=== PATIENT | female | born 1965 ===

== ENCOUNTER 2020-10-30 12:14 | Inpatient (IN) ==
[2020-10-30] MEDS ORDERED: ALBUTEROL 2.5 MG/3 ML NEB RESP TX PRN (14:45)
[2020-10-30] MEDS ORDERED: ONDANSETRON 4 MG/2 ML VIAL IV PRN (14:46)
[2020-10-30] MEDS: FAMOTIDINE 20 MG/2 ML VIAL IV SCH (15:02)
[2020-10-30 15:31] LABS: ABG Base Excess -2.6 MMOL/L (-2.5-2.5); ABG PCO2 29.1 MM HG (35-48); ABG PH 7.454 (7.35-7.45); ABG PO2 56.5 MM HG (80-95); ABG TCO2 20.8 MMOL/L (23-27); Allen Test Positive; Pt O2 Delivery Device Venturi Mask
[2020-10-30 15:32] LABS: Albumin 3.4 G/DL (3.4-5.0); Bilirubin,Total 8.4 MG/DL (0.2-1.0); Calcium 7.9 MG/DL (8.5-10.1); Osmolality,Calculated 290.3 MOS/KG (273-304); Potassium 3.8 MMOL/L (3.5-5.1); Total Protein 7.1 G/DL (6.4-8.2)
[2020-10-30 15:39] LABS: Thyroid Stimulating Hormone 0.745 uIU/ml (0.358-3.74)
[2020-10-30 16:52] LABS: INR 1.1; PT Patient Result 11.9 SECS (10.5-12.0)
[2020-10-30 16:54] LABS: Basophils % 0.3 % (0.0-0.8); Eosinophils % 0.1 % (0.00-10.9); Immature Granulocytes % 4.2 %; Immature Granulocytes Absolute 0.66 #; Lymphocytes # 2.1 10*3/uL (1.4-4.0); Lymphocytes % 13.1 % (21.3-54.2); Mean Corpuscular HGB Conc 34.8 GM/DL (32-36); Mean Corpuscular Volume 109.5 FL (87-102); Mean Platelet Volume 10.6 FL (9.6-12.0); Monocytes % 5.7 % (1.7-12.7); Neutrophils % 76.6 % (38.7-73.9); Platelet Count 128 T/CUMM (130-400); Red Blood Count 1.26 MC/CUMM (3.8-5.5); Red Cell Distribution Width 21.2 % (9.3-17.3); White Blood Count 15.8 T/CUMM (4-12)
[2020-10-30 17:12] LABS: Hematocrit 13.8 VOL% (35.7-47.0); Hemoglobin 4.8 GM/DL (12.0-16.0)
[2020-10-30] MEDS ORDERED: SODIUM CHLORIDE 0.9% 1,000 ML IV PRN ×2 (17:15→18:21)
[2020-10-30 18:02] LABS: Hepatitis B Core IgM Quant 0.05 Index; Hepatitis B Surface Ag Quant < 0.10 Index; Hepatitis B Surface Ag Result Non-Reactive (NonReactive); Hepatitis C Virus Ab Quant 0.07 Index; Hepatitis C Virus Ab Result Non-Reactive (NonReactive)
[2020-10-30 20:17] LABS: Bilirubin,Urine Negative (Negative); Blood, Urine Small mg/dL (Negative); Glucose,Urine (UA) Negative (Negative); Ketones,Urine Negative (Negative); Mucus,Urine Occasional /LPF (Occasional); Nitrite,Urine Negative (Negative); Protein,Urine Negative; RBC,Urine 1 /HPF (0-4); Squamous Epithelial Cell,Urine Occasional /HPF (0-10); Urine Appearance CLEAR (Clear); Urine Color Amber (Yellow)
[2020-10-31 05:05] LABS: Albumin 3.3 G/DL (3.4-5.0); Bilirubin,Total 7.7 MG/DL (0.2-1.0); Osmolality,Calculated 292.3 MOS/KG (273-304); Potassium 3.4 MMOL/L (3.5-5.1)
[2020-10-31 08:11] LABS: Basophils % 0.2 % (0.0-0.8); Eosinophils % 0.1 % (0.00-10.9); Immature Granulocytes % 4.9 %; Immature Granulocytes Absolute 0.79 #; Lymphocytes % 12.4 % (21.3-54.2); Mean Corpuscular Volume 112.2 FL (87-102); Monocytes % 6.9 % (1.7-12.7); NRBC # 2.38 10*3/uL; Neutrophils % 75.5 % (38.7-73.9); Red Blood Count 0.98 MC/CUMM (3.8-5.5); Red Cell Distribution Width 22.6 % (9.3-17.3); White Blood Count 16.2 T/CUMM (4-12)
[2020-10-31] MEDS: methylPREDNISolone SOD SUC 125 MG/2 ML VIAL IV SCH ×3 (08:29→21:26)
[2020-10-31] MEDS: FAMOTIDINE 20 MG/2 ML VIAL IV SCH ×2 (08:30→21:26)
[2020-10-31 08:33] LABS: Albumin 3.3 G/DL (3.4-5.0); Potassium 3.6 MMOL/L (3.5-5.1); Total Protein 6.8 G/DL (6.4-8.2)
[2020-10-31 08:35] LABS: Bilirubin,Total 7.6 MG/DL (0.2-1.0)
[2020-10-31 09:00] LABS: Mean Platelet Volume 10.5 FL (9.6-12.0); Platelet Count 160 T/CUMM (130-400)
[2020-10-31 09:05] LABS: Hemoglobin 4.4 GM/DL (12.0-16.0)
[2020-10-31] MEDS ORDERED: diphenhydrAMINE 50 MG/1 ML VIAL IV ONE (09:30)
[2020-10-31] MEDS ORDERED: ACETAMINOPHEN 325 MG TABLET PO ONE (09:30)
[2020-10-31 09:50] LABS: Lymphocytes 10 % (20-55); Nucleated Red Blood Cells 11 (0-5); Platelet Estimate Adequate; Segmented Neutrophils 82 % (50-85); Total Cells Counted 100
[2020-10-31 09:51] LABS: Hypochromasia 1+; Microcytosis 1+
[2020-10-31] MEDS ORDERED: IMMUNE GLOBULIN 10% 20 GM, IMMUNE GLOBULIN 10% 5 GM in PREMIX 1 EACH IV ONE (10:00)
[2020-10-31] MEDS ORDERED: DEXTROSE 50% 25 GM/50 ML VIAL IV PRN (10:26)
[2020-10-31] MEDS ORDERED: GLUCAGON 1 MG VIAL IM PRN (10:26)
[2020-10-31] MEDS ORDERED: ALPRAZolam 0.5 MG TABLET PO ONE (10:32)
[2020-10-31] MEDS ORDERED: MORPHINE 4 MG/1 ML VIAL ONE (10:36)
[2020-10-31] MEDS ORDERED: ALPRAZolam 0.5 MG TABLET PO PRN (10:37)
[2020-10-31] MEDS ORDERED: MORPHINE 4 MG/1 ML VIAL IV PRN (10:37)
[2020-10-31] MEDS ORDERED: MORPHINE 4 MG/1 ML VIAL IV ONE ×2 (11:00→11:24)
[2020-10-31] MEDS ORDERED: MIDAZOLAM 2 MG/2 ML VIAL IV ONE (11:25)
[2020-10-31] MEDS ORDERED: SUCCINYLCHOLINE 200 MG/10 ML VIAL ONE (11:34)
[2020-10-31] MEDS ORDERED: ETOMIDATE 20 MG/10 ML VIAL IV ONE ×2 (11:34)
[2020-10-31] MEDS ORDERED: SUCCINYLCHOLINE 200 MG/10 ML VIAL IV ONE (11:34)
[2020-10-31] MEDS ORDERED: MIDAZOLAM 100 MG in SODIUM CHLORIDE 0.9% 80 ML IV PRN (11:48)
[2020-10-31] MEDS ORDERED: fentaNYL INJ 1,250 MCG in SODIUM CHLORIDE 0.9% 225 ML IV PRN (11:48)
[2020-10-31] MEDS ORDERED: EPINEPHrine 1 MG/10 ML SYRINGE ONE (12:36)
[2020-10-31] MEDS ORDERED: SODIUM CHLORIDE 0.9% 1,000 ML IV PRN ×2 (12:45→18:50)
[2020-10-31 13:31] VITALS: BP 139/90
[2020-10-31] MEDS: NOREPINEPHRINE 8 MG in SODIUM CHLORIDE 0.9% 242 ML IV PRN ×3 (14:35→22:20)
[2020-10-31] MEDS ORDERED: NOREPINEPHRINE 4 MG/4 ML VIAL IV ONE (14:39)
[2020-10-31] MEDS ORDERED: SODIUM CHLORIDE 0.9% 500 ML IV ONE (15:15)
[2020-10-31] MEDS: INSULIN REGULAR 100 UNIT/ML SUBCUT SCH ×2 (15:21→18:47)
[2020-10-31 18:16] LABS: ABG HCO3 5.9 MMOL/L (20-26); ABG Oxygen Saturation 98.3 % (95-100); ABG PCO2 43.1 MM HG (35-48); ABG TCO2 7.2 MMOL/L (23-27)
[2020-10-31 18:18] LABS: ABG PH 6.801 (7.35-7.45)
[2020-10-31] MEDS ORDERED: SODIUM BICARBONATE 50 MEQ/50 ML VIAL IV ONE (18:21)
[2020-10-31 18:41] LABS: PT Patient Result > 178.9 SECS (10.5-12.0)
[2020-10-31 18:44] LABS: INR > 17.6; Partial Thromboplastin Time > 211.8 SECS (23.9-33.8)
[2020-10-31] MEDS ORDERED: NOREPINEPHRINE 16 MG in SODIUM CHLORIDE 0.9% 234 ML IV PRN (21:07)
[2020-11-01] MEDS: INSULIN REGULAR 100 UNIT/ML SUBCUT SCH (00:50)
[2020-11-01] MEDS ORDERED: IMMUNE GLOBULIN 10% 20 GM in PREMIX 1 EACH IV SCH (09:00)
[2020-11-01] MEDS ORDERED: ACETAMINOPHEN 500 MG TABLET PO ONE (10:44)
[2020-11-01] MEDS ORDERED: diphenhydrAMINE 50 MG/1 ML VIAL IV ONE (10:44)
[2020-11-01] MEDS ORDERED: RITUXIMAB-ABBS 500 MG, RITUXIMAB-ABBS 250 MG in SODIUM CHLORIDE 0.9% 675 ML IV ONE (11:00)
== END 2020-11-01 01:03 | disposition expired | DRG 809 ==
LOC: N.CC 14:33 → SUATTDRO 14:33
PROVIDERS: ADMIT Internal Medicine; ATTEND Internal Medicine